=== PATIENT | female | born 1955 | race Caucasian/White ===

== ENCOUNTER → 2018-08-14 11:22 | Outpatient (CLI) | payer OTHER, SELFPAY ==
--- NOTE | 2018-08-14 | DI.MG.S_ITS ---
BILATERAL DIGITAL SCREENING MAMMOGRAM 3D/2D WITH CAD: 08/14/2018 CLINICAL: Routine screening. Family history of breast cancer. Comparison is made to exams dated: 06/19/2017 mammogram, 06/30/2015 mammogram, and 12/18/2013 mammogram - [facility]. There are scattered fibroglandular elements in both breasts. Current study was also evaluated with a Computer Aided Detection (CAD) system. No significant masses, calcifications, or other findings are seen in either breast. There has been no significant interval change. IMPRESSION: NEGATIVE There is no mammographic evidence of malignancy. A 1 year screening mammogram is recommended. This exam was interpreted at Station ID: [id number]. NOTE: For mammograms, a report in lay terms will be sent to the patient. Approximately 15% of breast malignancies will not be visualized mammographically. In the management of a palpable breast mass, a negative mammogram must not discourage biopsy of a clinically suspicious lesion. Electronically Signed By: Oli [email or web address]:08/14/2018 11:56:09 letter sent: Normal Exam ACR BI-RADS Category 1: Negative 3341F
== END ==
PROVIDERS: Family Provider Nurse Practitioner Family; PCP Nurse Practitioner Family; Visit Provider Nurse Practitioner Family
DX: Z12.31 Encounter for screening mammogram for malignant neoplasm of breast (principal); Z80.3 Family history of malignant neoplasm of breast
CPT/HCPCS: 77063; 77067

== ENCOUNTER → 2021-04-20 08:06 | Outpatient (CLI) | payer MEDICARE, OTHER, SELFPAY ==
[2021-04-20 09:48] LABS: BUN Creatinine Ratio 14.1 (6-22); Blood Urea Nitrogen 11 mg/dL (7-17); Calcium 9.9 mg/dL (8.4-10.2); Carbon Dioxide 27 mmol/L (22-32); Chloride 102 mmol/L (98-107); Cholesterol 273 mg/dL (140-199); Estimated Glomerular Filt Rate > 60.0 mL/min (>60); Glucose 110 mg/dL (80-110); HEMOLYSIS < 15 (0-50); Potassium 4.5 mmol/L (3.4-5.1); Sodium 136 mmol/L (137-145); Triglycerides 118 mg/dL (35-150)
[2021-04-20 09:55] LABS: HDL Cholesterol 109 mg/dL (40-60); LDL Cholesterol Calculated 140 mg/dL (<100)
== END ==
PROVIDERS: Family Provider Nurse Practitioner Family; PCP Specialist; Referring Provider Specialist; Visit Provider Specialist
DX: I10 Essential (primary) hypertension (principal); E78.5 Hyperlipidemia, unspecified
CPT/HCPCS: 36415; 80048; 80061

== ENCOUNTER 2022-01-20 07:38 | Emergency (ER) | payer MEDICARE, OTHER, SELFPAY ==
[2022-01-20 07:40] VITALS: BP 173/79; PULSE 76; RESP 18; TEMP 36.6; O2SAT 99; BMI 27.1
--- NOTE | 2022-01-20 08:07 | ED.RECABL ---
HPI - Recheck/Abnormal Lab/Rx General Chief Complaint: Recheck/Abnormal Lab/Rx Stated Complaint: needs 2nd rabies shot Time Seen by Provider: 01/20/22 07:40 Source: patient Mode of arrival: Ambulatory History of Present Illness HPI narrative: Ms. Lynne is a 66-year-old woman who was recently in contact with the bat and fears she may have been bitten by it and is therefore in the process of rabies immunization. Today would be her 2nd dose of the immunization toxoid. She feels entirely well with no new complaints. Unfortunately, her insurance does not allow her to get these treatments at a local clinic and she must come to a facility for said treatments. She has no other concerns today. Related Data Previous Rx's Medication Instructions Recorded albuterol sulfate 90 mcg/actuation 0.09 mg IH Q4HP PRN #1 inh 12/11/16 aerosol inhaler (Proventil HFA) mometasone-formoterol HFA 200 1 puff INH BID #1 inh 12/11/16 mcg-5 mcg/actuation aerosol inhaler (Dulera) montelukast 10 mg tablet 10 mg PO QDAY #30 tabs 12/11/16 (Singulair) alprazolam 0.5 mg tablet 0.5 mg PO QHS #45 tabs 02/08/17 Allergies Allergy/AdvReac Type Severity Reaction Status Date / Time latex [LATEX] Allergy Unknown DIZZINESS Unverified 10/10/17 11:47 HAYFEVER Allergy Mild DRY Uncoded 10/10/17 11:47 COUGH,NASAL RHINITIS Review of Systems Review of Systems Narrative: Focused review of systems is negative other than as noted. Patient History Surgical History (Updated 10/30/17 @ 05:02 by Conversion Provider) Status post colonoscopy Status post colonoscopy Family History Father Heart disease Stroke Grandmother Mental health problem Mother Breast cancer Grandmother Heart disease Social History Smoking Status: Never smoker Smoking Status: Never smoker Substance Use Type: does not use Exam Narrative Exam Narrative: GENERAL: Alert, cooperative and in no distress. HEAD: Atraumatic. Normocephalic. EYES: Sclera are clear without icterus. Extraocular movements are full. ENT: No rhinorrhea NECK: No visible abnormality RESPIRATORY: No respiratory distress GASTROINTESTINAL: Nondistended EXTREMITIES: No obvious trauma. NEURO: Nonfocal, normal speech SKIN: No rash or erythema of visible areas PSYCH: Normally oriented. Normal range of affect. Appropriate behavior Initial Vital Signs Initial Vital Signs: Vital Signs Temperature 98 F 01/20/22 07:40 Pulse Rate 76 01/20/22 07:40 Respiratory Rate 18 01/20/22 07:40 Blood Pressure 173/79 H 01/20/22 07:40 Pulse Oximetry 99 01/20/22 07:40 Oxygen Delivery Method 01/20/22 07:40 Course Orders Ordered: Discontinued Medications Rabies Vaccine (Rabies Vaccine (Rabavert) 2.5 Units Syringe) 2.5 units IM .ONCE ONE Stop: 01/20/22 08:03 Last Admin: 01/20/22 08:41 Dose: 2.5 units Documented By: VEDA Vital Signs Vital signs: Vital Signs - 8 hr 01/20/22 07:40 Temperature 98 F Pulse Rate 76 Respiratory Rate 18 Blood Pressure 173/79 H Pulse Oximetry 99 Oxygen Delivery Method Room Air Discharge Plan Departure Patient Disposition: Home Clinical Impression: Contact with and (suspected) exposure to rabies Activity Restrictions/Additional Instructions: I am sorry that you have to keep returning to the ED for these treatments but you are welcome to do so and we are happy to take care of it is best we can. Return for your next dose as scheduled. Of course return urgently for the development of any concerning signs or symptoms which I certainly do not expect related to your exposure. Prescriptions: No Action montelukast [Singulair] 10 MG tablet 10 mg PO QDAY Qty: 30 11RF albuterol sulfate [Proventil HFA] 90 MCG/PUFF HFA aerosol inhaler 0.09 mg IH Q4HP PRNQty: 1 1RF mometasone-formoterol [Dulera] 200 MCG/5 MCG HFA aerosol inhaler 1 puff INH BID Qty: 1 6RF alprazolam 0.5 MG tablet 0.5 mg PO QHS Qty: 45 0RF Referrals: Janette Crandall MD [Primary Care Provider] - Visit Report Forms: Patient Portal/API
[2022-01-20] MEDS: RABIES VACCINE (RABAVERT) 2.5 UNITS SYRINGE IM (08:41)
== END 2022-01-20 08:47 | disposition home or self-care (01) ==
PROVIDERS: Emergency Provider Family Medicine Addiction Medicine; Family Provider Nurse Practitioner Family; PCP Specialist
DX: Z20.3 Contact with and (suspected) exposure to rabies (principal); Z23 Encounter for immunization
CPT/HCPCS: 90471; 90675; 99283